=== PATIENT | male | born 2000 ===

== ENCOUNTER 2021-06-03 15:57 | Emergency (ER) | payer OTHER ==
[~2021-06-03] VITALS: Ht 175.3 cm; Wt 70.3 kg
[2021-06-03] MEDS ORDERED: ACETAMINOPHEN ES 500 MG TABLET PO ONE (17:30)
[2021-06-03] MEDS ORDERED: KETOROLAC TROMETHAMINE 30 MG INJ IM ONE (17:30)
[2021-06-03] MEDS ORDERED: GABA-536 PO (17:39)
[2021-06-03] MEDS ORDERED: ACETAMINOPHEN ES 500 MG TABLET ONE (17:48)
[2021-06-03] MEDS ORDERED: KETOROLAC TROMETHAMINE 30 MG INJ ONE (17:48)
--- NOTE | 2021-06-03 18:27 | NUR ---
Pt states feeling better, and wish to be discharged.
[2021-06-03 18:42] VITALS: BP 117/60
== END 2021-06-03 18:43 | disposition home or self-care (01) ==
LOC: ER 16:04
DX: M54.12 Radiculopathy, cervical region (principal); Z91.018 Allergy to other foods
CPT/HCPCS: 96372; 99283; J1885; A4663; A9150